=== PATIENT | female | born 1950 | race Caucasian/White ===

== ENCOUNTER 2017-06-14 11:15 | Inpatient (IN) | payer MEDICARE, OTHER ==
[2017-06-14 12:12] LABS: #Lymphocytes 1.5 thou/uL (1.20-3.40); #Monocytes 0.9 thou/uL (0.11-0.59); #Neutrophils 11.6 thou/uL (1.40-6.50); %Basophils 0.2 % (0.0-1.0); %Eosinophils 0.1 % (0.0-10.0); %Lymphocytes 10.4 % (21.0-51.0); %Monocytes 6.1 % (0.0-10.0); %Neutrophils 83.2 % (42.0-75.0); Hemoglobin 11.9 g/dL (12.0-16.0); Mean Corpuscular Hemoglobin 31.3 pg (27.0-31.0); Mean Corpuscular Volume 92.2 fl (81.0-99.0); Platelet Count 159 thou/uL (130-400); RBC Distribution Width 12.6 % (11.5-14.5); White Blood Cell (WBC) Count 13.9 thou/uL (4.8-10.8)
[2017-06-14 12:34] LABS: ALT (SGPT) 22 U/L (8-55); AST (SGOT) 28 U/L (5-34); Albumin 3.2 g/dL (3.4-4.8); Alkaline Phosphatase 71 U/L (40-150); Anion Gap 12 mmol/L (10-20); BUN (Urea Nitrogen) 36 mg/dL (9.8-20.1); Bilirubin, Total 0.3 mg/dL (0.2-1.2); Calc. Creatinine Clearance 0 mL/min (70-130); Calcium 8.4 mg/dL (7.8-10.44); Carbon Dioxide 26 mmol/L (23-31); Chloride 105 mmol/L (98-107); Dilantin 3.8 ug/mL (10.0-20.0); Estimated GFR-MDRD 28; Globulin 2.9 g/dL (2.4-3.5); Glucose 142 mg/dL (80-115); Potassium 4.5 mmol/L (3.5-5.1); Protein, Total 6.1 g/dL (6.0-8.3); Sodium 138 mmol/L (136-145)
--- NOTE | 2017-06-14 14:17 | CT ---
HEAD CT WITHOUT CONTRAST: HISTORY: Seizure. Post ictal state. COMPARISON: 08/20/2016 TECHNIQUE: A noncontrast head CT is performed from the skull base to the skull vertex. FINDINGS: No parenchymal hemorrhage. No extraaxial hematoma. No midline shift. Basilar cisterns are patent. Age appropriate atrophy. Cortical ramirez white matter differential is preserved. Ventricles and sulc i are patent and symmetric. Stable hypodensities involving the bilateral deep ramirez matter structures and the bilateral thalami du e to remote lacunar infarcts. Chronic small vessel ischemic changes of the white matter are also iden tified. No evidence of hydrocephalus. The calvarium is intact. Stable post surgical change in the left temporal bone. IMPRESSION: 1. Limited evaluation due to motion degradation. No acute intracranial process. 2. Remote lacunar infarcts and chronic small vessel ischemic changes of the white matter are redemon strated. POS: YANIV
[2017-06-14] MEDS ORDERED: Ondansetron HCl/PF 4 MG/2 ML Vial IVP PRN (16:39)
[2017-06-14] MEDS ORDERED: Acetaminophen 650 MG Suppository PR PRN (16:39)
[2017-06-14] MEDS ORDERED: Sodium Chloride 0.9% 1,000 ML IV SCH (16:45)
[2017-06-14] MEDS ORDERED: Lorazepam 2 MG/ML VIAL SLOW IVP PRN (16:46)
[2017-06-14] MEDS ORDERED: Dextrose 5% in Water 1,000 ML IV PRN (16:49)
[2017-06-14] MEDS ORDERED: HumaLOG 300 UNITS/3 ML VIAL SC PRN (16:49)
[2017-06-14] MEDS ORDERED: Dextrose 50% Abboject 50 ML SYRINGE SLOW IVP PRN (16:49)
--- NOTE | 2017-06-14 16:57 | HP ---
DATE OF ADMISSION: 06/14/2017 CHIEF COMPLAINT: Seizures. HISTORY OF PRESENT ILLNESS: This is a 66-year-old female being seen in the ER by Internal Medicine, status post seizure. History is obtained from ER physician as the patient is having altered mental s tatus. Per documentation in ER review, patient apparently lives in a [facility] where she had a se izure. At the [facility] per records while the patient was seizing, apparently she was given 2 mg of crushed lorazepam sublingual and once EMS arrived, she received 2 more milligrams of Ativan sublin gual as well. Patient at this point in time in the ER is unresponsive, but appears comfortable. The patient's Dilantin levels were found to be subtherapeutic at 3.8. The patient also was found to hav e significant amount of bloody stool when her diaper was being changed. The patient also had a creat inine of 1.82, her baseline approximately 9 months ago was around 0.86. No family available. No oth er history available. ALLERGIES: No known drug allergies per documentation. PAST MEDICAL HISTORY: Seizures, hypertension, Alzheimer's disease, essential hypertension. SOCIAL HISTORY: Not possible to be obtained. FAMILY HISTORY: Not possible to be obtained. REVIEW OF SYSTEMS: Not possible due to patient's condition. PHYSICAL EXAMINATION: VITAL SIGNS: Blood pressure was 126/80, heart rate 74, respiratory rate of 18, pulse ox 95% on room air, and temperature of 98. GENERAL: No acute distress, lying in bed. HEENT: Pupils are equal, round, reactive to light and accommodation. Normocephalic, atraumatic. Or al cavity appears dry. NECK: Supple, mobile and nontender thyroid. LUNGS: Aerating well. Clear to auscultation bilaterally. HEART: Regular rate and rhythm. S1 and S2. No murmurs, rubs or gallops appreciated. ABDOMEN: Positive bowel sounds, soft, nontender. EXTREMITIES: 2+ peripheral pulses. No edema noted. Bloody stool noted in diaper. NEUROLOGIC: Neurologically, patient withdraws to pain, otherwise does not respond to verbal or tacti le stimuli. IMAGING DATA AND LABORATORY DATA: CT scan of the head is limited due to motion degeneration, remote lacunar infarction and small chronic vessel ischemic changes noted in the white matter. Hemoglobin 1 1.9, WBC count of 14. BMP shows creatinine of 1.82, albumin 3.2, phenytoin levels of 3.8. ASSESSMENT AND PLAN: 1. Seizure. 2. Gastrointestinal bleed. 3. Hypertension. 4. Acute kidney injury on chronic kidney disease stage 3. 5. Leukocytosis. 6. Anemia 7. Alzheimer's disease. PLAN: At this point in time, we will admit the patient to IMU. We will start the patient on IV flui ds, give 2 liters total at 100 mL an hour. We will trend hemoglobin q.12 hours x4 times, repeat BMP in a.m. We will consult GI for GI bleed. If renal function not improving tomorrow, we will consider consultation to Nephrology. We will consult Neurology for altered mental status. Check vitamin lev els, TSH. We will give patient Protonix 40 IV q.12 and provide SCDs for DVT prophylaxis. We will ho ld off on any seizure medications at this point in time as the patient has received 4 mg of benzodiaz epines and currently is not responding to verbal or tactile stimuli oxygenating well and likely will be in need of intubation. We will also obtain blood cultures and urine cultures for completeness pur poses given WBC count of 14 and concern for possible aspiration. No family at bedside. The patient will be default to a FULL CODE status. We will make changes as appropriate once labs have returned.
[2017-06-14 18:42] LABS: Folate (Folic Acid) 3.5 ng/mL (7.0-31.4)
[2017-06-14] MEDS: Sodium Chloride 0.9% 1,000 ML IV SCH (20:05)
[2017-06-14] MEDS: Pantoprazole 40 MG VIAL IVP SCH (20:10)
[2017-06-14 22:29] LABS: Hemoglobin 11.8 g/dL (12.0-16.0)
--- NOTE | 2017-06-15 01:07 | CON ---
DATE OF CONSULTATION: 06/14/2017 CONSULTING PHYSICIAN: Evelyn Starr M.D. REQUESTING PHYSICIAN: Dr. Kelly. REASON FOR CONSULTATION: Acute kidney injury. IMPRESSION: 1. Acute kidney injury. This is likely in the context of poor p.o. intake resulting in prerenal acu te kidney injury; however, cannot completely rule out cytokine-mediated injury, given the elevated wh ite blood cell count in this patient. In this case, possibly urinary tract infection, given this sig nificant mental status change. 2. Seizure, likely breakthrough seizure in the context of subtherapeutic Dilantin level. PLAN: 1. Gentle IV fluid resuscitation. 2. Urinalysis with reflex to culture and sensitivity if indicated. Patient is very incontinent, the refore, straight catheterization can be done to get a urine sample to this effect. 3. Renally dose all medications and avoid potentially nephrotoxic agents. 4. Further management to be dependent on the clinical course. HISTORY OF PRESENT ILLNESS: History is that of a 66-year-old intermediate resident. Accu-Chek from whom I could not get any history at all brought in here with mental status change, seizure disorder a nd noted to have elevated creatinine of 1.82 above her baseline creatinine of 0.8. The patient obrichardsono ly has not been eating more and drinking much lately, but according to the family members on Tuesday , the patient seemed to be much more alert with them prior to this clinical decline. As a result of these findings, decision has been taken to involve Renal in the management of this case. PAST MEDICAL HISTORY: Significant for; 1. History of CVA in the past. 2. Seizure, on Dilantin. 3. Alzheimer's. 4. Hypertension. MEDICATIONS: Reviewed as documented on [employer]. SOCIAL HISTORY: The patient is a intermediate resident. No alcohol, no tobacco, no illicit drug use . REVIEW OF SYSTEMS: Could not be obtained from this patient due to clinical condition. PHYSICAL EXAMINATION: GENERAL: The patient was found to be lying on the bed in no obvious distress. VITAL SIGNS: Afebrile, blood pressure 126/80, pulse 74, respiratory of 18, O2 sat on 95%. HEENT: Remarkable for dry oral mucosa. No conjunctival injection or icterus. NECK: Supple. CARDIOVASCULAR SYSTEM: First and second heart sounds were heard. RESPIRATORY SYSTEM: Clear to auscultation. DIGESTIVE SYSTEM: Reviewed a benign abdomen. EXTREMITIES: No peripheral edema. SKIN: No new gross rash. LYMPHATICS: No peripheral lymphadenopathy. SUMMARY: A 66-year-old intermediate resident who presented here with seizure, mental status change a nd noted with elevated creatinine above her baseline creatinine in the context of acute kidney injury . Thank you for this consultation. We will follow with you.
[2017-06-15 01:41] LABS: Bilirubin Negative (Negative); Blood, Urine Moderate (Negative); Clarity TURBID (Clear); Glucose, Urine (Dipstick) Negative (Negative); Leukocyte Large (Negative); Nitrite Negative (Negative); Protein, Urine (Dipstick) 30 mg/dL (Neg-Trace); Specific Gravity, Urine 1.018 (1.002-1.036); Urobilinogen 0.2 mg/dL (0.2-1.0)
[2017-06-15 01:43] LABS: Bacteria/HPF None Seen HPF (None Seen); Squamous Epithelial 0-3 HPF (0-3)
[2017-06-15 01:44] LABS: Yeast-AUWi Flag 115.8 (0-25.0)
[2017-06-15 01:45] LABS: Pathc Cast-AUWi Flag 10.46 (0-2.49)
[2017-06-15 01:56] LABS: Yeast-All Forms None Seen HPF (None Seen)
[2017-06-15 03:52] LABS: #Lymphocytes 1.2 thou/uL (1.20-3.40); #Monocytes 0.8 thou/uL (0.11-0.59); #Neutrophils 8.7 thou/uL (1.40-6.50); %Basophils 0.1 % (0.0-1.0); %Eosinophils 0.2 % (0.0-10.0); %Lymphocytes 11.3 % (21.0-51.0); %Monocytes 7.1 % (0.0-10.0); %Neutrophils 81.3 % (42.0-75.0); Hemoglobin 10.7 g/dL (12.0-16.0); Mean Corpuscular HGB CONC 32.8 g/dL (32.0-36.0); Mean Corpuscular Hemoglobin 30.9 pg (27.0-31.0); Mean Corpuscular Volume 94.2 fl (81.0-99.0); Mean Platelet Volume 7.9 fL (7.4-10.4); Platelet Count 138 thou/uL (130-400); RBC Distribution Width 12.5 % (11.5-14.5); Red Blood Cell (RBC) Count 3.45 mill/uL (4.20-5.40); White Blood Cell (WBC) Count 10.7 thou/uL (4.8-10.8)
[2017-06-15 04:30] LABS: Anion Gap 10 mmol/L (10-20); BUN (Urea Nitrogen) 30 mg/dL (9.8-20.1); Calc. Creatinine Clearance 39 mL/min (70-130); Calcium 8.5 mg/dL (7.8-10.44); Carbon Dioxide 27 mmol/L (23-31); Chloride 107 mmol/L (98-107); Estimated GFR-MDRD 47; Glucose 130 mg/dL (80-115); Potassium 3.6 mmol/L (3.5-5.1); Sodium 140 mmol/L (136-145)
[2017-06-15] MEDS: Sodium Chloride 0.9% 1,000 ML IV SCH (05:39)
[2017-06-15] MEDS: Pantoprazole 40 MG VIAL IVP SCH ×2 (09:27→22:00)
--- NOTE | 2017-06-15 11:10 | CON ---
DATE OF CONSULTATION: 06/15/2017 REQUESTING PHYSICIAN: Dr. Kelly. REASON FOR CONSULTATION: GI bleeding. HISTORY OF PRESENT ILLNESS: Kely Tuttle is a 66-year-old woman who was admitted from the [facility] yesterday after having a seizure with residual altered mental status. She has a history of Alzhe skyler's dementia and prior seizures. She was found to have a subtherapeutic phenytoin level. Also up on presentation in the ER, she was found to have blood in her diaper, this was described as a red jel ly consistency and then later last night she had some more bright red blood in her diaper. There has been no further overt bleeding this morning. She has remained hemodynamically stable. Her mental s tatus seems to have improved a bit, though it is unclear to me what her baseline is. She is not comp laining of any abdominal pain. She was found to have mild normocytic anemia with initial hemoglobin of 11.9, now at 10.7, and folic acid level was found to be low. History is difficult to obtain from the patient due to her altered mental status and I have been unable to contact any family members at any of the listed phone numbers. I note she was seen by my GI colleague, Dr. Tonio Chisholm way back in 2002. At that time, she had an en doscopy done after an episode of overt bleeding. EGD at that time showed only a hiatal hernia and bi opsies were negative for Millan's esophagus. Colonoscopy at that time showed only a single small si gmoid hyperplastic polyp, which was removed. It is unclear to me whether she has had any endoscopic studies since 2002. REVIEW OF SYSTEMS: The patient denies abdominal pain. Otherwise mental status continues to wax and wane and so full review of systems is unobtainable. SOCIAL HISTORY: By report, there is no smoking, alcohol, or drug use. FAMILY HISTORY: Unobtainable from the patient. ALLERGIES: No known drug allergies. OUTPATIENT MEDICATIONS: Per medication list, this includes, tramadol, metformin, Benadryl, Seroquel, phenytoin, Zyprexa, metoprolol, magnesium hydroxide p.r.n., lisinopril, Levaquin, glimepiride, gabap entin, famotidine, Depakote, and Tylenol p.r.n. INPATIENT MEDICATIONS: Include Zofran p.r.n., Protonix 40 mg IV q.12 hours, sliding scale insulin. PHYSICAL EXAMINATION: VITAL SIGNS: Temperature 97.8, pulse 78, blood pressure 120/52, 100% oxygen saturation on room air. GENERAL: Frail, 66-year-old woman, lying in bed comfortably, in no acute distress. MENTAL: She is alert to person, not to place or time. She can answer simple yes or no questions reg arding current symptoms, but she is unable to provide any history. SKIN: No jaundice, no rashes were palpable. EYES: No scleral icterus. Extraocular movements intact. ENT: Mucous membranes moist, no oral lesions. LYMPH: No submandibular or supraclavicular lymphadenopathy. THYROID: Nontender to palpation. HEART: Regular rate and rhythm. LUNGS: Clear to auscultation bilaterally. ABDOMEN: Flat, bowel sounds present, soft, no tenderness to palpation. No masses or organomegaly ap preciated. EXTREMITIES: No peripheral edema. VESSELS: Radial pulses 2+ bilaterally. LABORATORY STUDIES: Hemoglobin initially 11.9, now down to 10.7 after IV hydration. Note, hemoglobi n was 13 upon last year's hospitalization. MCV normal at 94. WBC is 10.7, platelets 138. BUN 30, c reatinine 1.15, folic acid, low at 3.5. Vitamin B12 521. TSH 0.66. LFTs all normal with total bili arguello 0.3, alkaline phosphatase 71, AST 28, ALT 22, albumin 3.2. FOBT was positive. IMAGING STUDIES: CT of the head showed no acute processes. There are chronic small vessel changes. ASSESSMENT AND PLAN: 1. Lower gastrointestinal bleeding, acute, possibly resolving. 2. Anemia, normocytic. 3. Folic acid deficiency. The pattern of bleeding this presentation could be consistent with rectal outlet source such as hemor rhoidal origin versus diverticular bleeding or possibly ischemic colitis. It is unclear whether she has had any colonoscopy more recent than 2002. Certainly, she is hemodynamically stable with only mi ld anemia. I do think it would be reasonable to perform colonoscopy for definitive investigation of the bleeding source, but I am unable to get ahold of any family members or other contacts at any of t he listed numbers. There is certainly no urgency to this unless more significant overt bleeding were to occur over the course of today. Accordingly, we will just have her on a clear liquid diet today and reassess tomorrow. Please trend H&H. We will also order iron studies to round out the anemia la b evaluation.
--- NOTE | 2017-06-15 15:06 | PRG ---
DATE OF SERVICE: 06/15/2017 SUBJECTIVE: The patient was seen and examined, much more awake today, and able to interact to an ext ent, noted with the following vital signs. OBJECTIVE: VITAL SIGNS: Afebrile with temperature 97.7, pulse 77, respiratory rate of 12, O2 sat 99% with blood pressure 142/64. HEENT EXAMINATION: Unremarkable. CARDIOVASCULAR SYSTEM: First and second heart sounds were heard. RESPIRATORY SYSTEM: Clear to auscultation bilaterally. DIGESTIVE SYSTEM: Revealed a benign abdomen. EXTREMITIES: No peripheral edema. SKIN EXAMINATION: No new gross rash. IMPRESSION: Acute kidney injury, which is more or less in the context of intravascular depletion, se ems to be responding with drop in the creatinine level. PLAN: 1. We will continue with current renal supportive measures. 2. Other management dependent on the clinical course as well as an outpatient services and primary t eam.
--- NOTE | 2017-06-15 15:43 | PDOC.PN ---
- Subjective Encounter Start Date: 06/15/17 Encounter Start Time: 15:41 Patient seen and examined, states she feels much better today, no new issues otherwise, no family at bedside. - Objective Vital Signs & Weight: Vital Signs (12 hours) Temp Pulse Resp BP BP BP Pulse Ox 06/15/17 12:00 97.7 F 77 14 142/64 H 99 06/15/17 11:35 97.7 F 77 12 142/64 H 99 06/15/17 08:00 97.8 F 78 12 120/52 L 100 06/15/17 07:53 97.6 F 78 10 L 120/52 L 100 06/15/17 04:00 98.9 F 70 14 122/55 L 98 Weight Admit Weight 115 lb 3.2 oz Weight 115 lb 14.4 oz I&O: 06/14/17 06/15/17 06/16/17 06:59 06:59 06:59 Intake Total 1395 Balance 1395 Result Diagrams: 06/15/17 03:40 06/15/17 03:40 Additional Labs: Accuchecks 06/15/17 06/15/17 06/14/17 10:38 05:47 20:17 POC Glucose 114 H 111 H 108 Phys Exam - Physical Examination Constitutional: NAD HEENT: PERRLA, moist MMs, sclera anicteric Neck: no nodes, no JVD, supple Respiratory: no wheezing, no rales, no rhonchi Cardiovascular: RRR, no significant murmur, no rub Gastrointestinal: soft, non-tender, no distention Musculoskeletal: no edema, pulses present Neurological: non-focal, normal sensation Dx/Plan (1) Acute encephalopathy Code(s): G93.40 - ENCEPHALOPATHY, UNSPECIFIED Status: Acute (2) Alzheimer's dementia with behavioral disturbance Code(s): G30.8 - OTHER ALZHEIMER'S DISEASE; F02.81 - DEMENTIA IN OTH DISEASES CLASSD ELSWHR W BEHAVIORAL DISTURB Status: Chronic Qualifiers: (3) DM type 2 (diabetes mellitus, type 2) Status: Chronic Qualifiers: (4) HTN (hypertension) Code(s): I10 - ESSENTIAL (PRIMARY) HYPERTENSION Status: Chronic Qualifiers: (5) Seizure disorder Code(s): G40.909 - EPILEPSY, UNSP, NOT INTRACTABLE, WITHOUT STATUS EPILEPTICUS Status: Chronic - Plan * Mental status much improved * neurology following for seizure history * renal function improving, Cr normalizing * Hgb stable, no more bloody bowel movements today * patient can be moved to the telemetry floor is ok with subspecialists * no family at bedside
[2017-06-16 04:48] LABS: #Eosinphils 0.1 thou/uL (0.0-0.7); #Monocytes 0.6 thou/uL (0.11-0.59); #Neutrophils 7.9 thou/uL (1.40-6.50); %Basophils 0.3 % (0.0-1.0); %Eosinophils 1.4 % (0.0-10.0); %Lymphocytes 9.9 % (21.0-51.0); %Monocytes 6.1 % (0.0-10.0); %Neutrophils 82.4 % (42.0-75.0); Hemoglobin 10.5 g/dL (12.0-16.0); Mean Corpuscular HGB CONC 33.8 g/dL (32.0-36.0); Mean Corpuscular Hemoglobin 31.1 pg (27.0-31.0); Platelet Count 133 thou/uL (130-400); RBC Distribution Width 12.4 % (11.5-14.5); Red Blood Cell (RBC) Count 3.39 mill/uL (4.20-5.40); White Blood Cell (WBC) Count 9.6 thou/uL (4.8-10.8)
[2017-06-16 04:56] LABS: Anion Gap 13 mmol/L (10-20); BUN (Urea Nitrogen) 20 mg/dL (9.8-20.1); Calc. Creatinine Clearance 59 mL/min (70-130); Calcium 8.6 mg/dL (7.8-10.44); Carbon Dioxide 23 mmol/L (23-31); Chloride 108 mmol/L (98-107); Estimated GFR-MDRD 75; Glucose 109 mg/dL (80-115); Iron 12 ug/dL (50-170); Iron Binding Capacity, Total 163 mcg/dL (265-497); Potassium 3.2 mmol/L (3.5-5.1); Sodium 141 mmol/L (136-145)
[2017-06-16] MEDS: Pantoprazole 40 MG VIAL IVP SCH ×2 (09:40→20:47)
--- NOTE | 2017-06-16 11:30 | PRG ---
DATE OF SERVICE: 06/16/2017 SUBJECTIVE: Seen and examined, noncommunicative as usual, noted with the following. PHYSICAL EXAMINATION: VITAL SIGNS: Afebrile with temperature 97.5, pulse 67, respiratory rate of 18, O2 saturation 100%, a nd blood pressure 136/61. HEENT: Unremarkable. CARDIOVASCULAR SYSTEM: First and second heart sounds were heard. RESPIRATORY SYSTEM: Clear to auscultation. DIGESTIVE SYSTEM: Revealed a benign abdomen with positive bowel sounds. EXTREMITIES: No peripheral edema. SKIN: No new gross rash. LYMPHATICS: No peripheral lymphadenopathy. IMPRESSION: 1. Acute kidney injury which seems to have improved with rehydration. 2. Mental status change in the context of dementia. PLAN: 1. We will continue current renal supportive measures. 2. Further management to be dependent on the clinical course.
[2017-06-16] MEDS ORDERED: Iron Sucrose Complex 200 MG in Sodium Chloride 0.9% 250 ML 250 ML IVPB SCH (13:15)
[2017-06-16] MEDS ORDERED: Sodium Ferric Gluconate 250 MG in Sodium Chloride 0.9% 250 ML 250 ML IVPB SCH (13:30)
--- NOTE | 2017-06-16 13:36 | PDOC.PN ---
- Subjective Encounter Start Date: 06/16/17 Encounter Start Time: 13:35 Patient seen and examined, doing much better, no new issues per nursing staff, no family at bedside. - Objective Vital Signs & Weight: Vital Signs (12 hours) Temp Pulse Resp BP Pulse Ox 06/16/17 11:25 98.1 F 69 18 145/61 H 95 06/16/17 08:00 97.5 F L 67 18 06/16/17 07:25 97.5 F L 67 18 136/61 100 06/16/17 04:00 97.9 F 67 16 143/63 H 98 Weight Admit Weight 115 lb 3.2 oz Weight 117 lb 1.047 oz I&O: 06/15/17 06/16/17 06/17/17 06:59 06:59 06:59 Intake Total 1395 4245 Balance 1395 4245 Result Diagrams: 06/16/17 04:20 06/16/17 04:20 Additional Labs: Accuchecks 06/16/17 06/16/17 06/15/17 10:19 04:24 22:38 POC Glucose 174 H 111 H 117 H 06/15/17 16:40 POC Glucose 112 H Phys Exam - Physical Examination Constitutional: NAD HEENT: PERRLA, moist MMs, sclera anicteric Neck: no nodes, no JVD, supple Respiratory: no wheezing, no rales, no rhonchi Cardiovascular: RRR, no significant murmur, no rub Gastrointestinal: soft, non-tender, no distention Musculoskeletal: no edema, pulses present Dx/Plan (1) Acute encephalopathy Code(s): G93.40 - ENCEPHALOPATHY, UNSPECIFIED Status: Acute (2) Alzheimer's dementia with behavioral disturbance Code(s): G30.8 - OTHER ALZHEIMER'S DISEASE; F02.81 - DEMENTIA IN OTH DISEASES CLASSD ELSWHR W BEHAVIORAL DISTURB Status: Chronic Qualifiers: (3) DM type 2 (diabetes mellitus, type 2) Status: Chronic Qualifiers: (4) HTN (hypertension) Code(s): I10 - ESSENTIAL (PRIMARY) HYPERTENSION Status: Chronic Qualifiers: (5) Seizure disorder Code(s): G40.909 - EPILEPSY, UNSP, NOT INTRACTABLE, WITHOUT STATUS EPILEPTICUS Status: Chronic - Plan * resume depakote and dilantin * resume home BP meds with hold parameters * neurological evaluation pending, appreciate renal and GI input * transfer to telemetry floor today * DC plans in AM back to NH if patient doing well and cleared by subspecialists * no family at bedside.
[2017-06-16] MEDS ORDERED: Potassium Chloride 40 MEQ in Premix Bag 1 BAG IVPB SCH (13:45)
--- NOTE | 2017-06-16 15:15 | CON ---
HISTORY OF PRESENT ILLNESS: Ms. Tuttle is a 66-year-old female who lives in a [facility]. She gallagher s dementia, I am told. She is unable to give an accurate history. She presented with seizures. She apparently has a history of seizure disorder. She was found to be subtherapeutic on her seizure meds, but has had no further seizures. PAST MEDICAL HISTORY: Remarkable for hypertension, dementia. There is no family in the room and there is no family available at this time. Old records were reviewed. She was hospitalized here last in 08/2016 with altered mental status at t hat time. Then, the family that available was a sister and a niece. She was found to have urinary tract infection. She has a history of diabetes as well. SOCIAL HISTORY: She is a nonsmoker, nondrinker. She has no history of drug use. She reportedly has a history of bipolar disorder. FAMILY HISTORY: Negative for vascular disease, cancer, or lung disease in early age. ALLERGIES: She has no reported drug allergies. MEDICATIONS: She lives in [facility]. REVIEW OF SYSTEMS: Not obtainable. MEDICATIONS: When she was hospitalized last year, she was on Ativan, Depakote, Dilantin, Benadryl, f amotidine, gabapentin, glimepiride, Lasix, lisinopril, metformin, metoprolol, potassium, Remeron, Ser oquel, tramadol, and Zyprexa. PHYSICAL EXAMINATION: GENERAL: She is lying on her left side. She denied being in any distress. She opened her eyes quic kly when I stimulated her. Answer questions. She thought she was at home. VITAL SIGNS: She is afebrile, heart rate 76, respiratory rate 17, oximetry is 98 on room air, blood pressure 155/74. NECK: Supple. No lymphadenopathy. LUNGS: Clear. HEART: Regular rhythm. S1 and S2 are normal. ABDOMEN: Soft and nontender. EXTREMITIES: Without clubbing, cyanosis, or edema. NEUROLOGIC: Grossly nonfocal. LABORATORY DATA: White count is 10.7, hemoglobin 10.7, platelets 138,000. Sodium 140, potassium 3.6 , chloride 107, bicarb 27, BUN 30, creatinine 1.15. Creatinine was 1.82 on admission. Baseline crea tinine is about 0.8. Reviewing old records. Her Dilantin level was 6.8 when she was here in August of last year was 3.8 on admission here. IMPRESSION: 1. Seizure disorder secondary to subtherapeutic seizure. 2. Polypharmacy. 3. Dementia that seems to be fairly advanced. Once her seizure meds are therapeutic, she will be transferred back to the [facility]. She has not had any seizure since she has been here. Code status definitely needs to be addressed. Palliative care input may be appropriate. This is a 50-minutes pulmonary consult greater than 50% of the time was spent on unit coordinating ca re.
--- NOTE | 2017-06-16 18:52 | PRG ---
DATE OF SERVICE: 06/16/2017 SUBJECTIVE: Ms. Tuttle tentatively scheduled to go back to the residential. There are no new issu es. OBJECTIVE: VITAL SIGNS: Have been stable. She is afebrile, heart rate 71, respiratory rate 16, oximetry is 98 on room air, blood pressure 133/67. IMPRESSION: 1. Seizures secondary to a past CVA and secondary to a subtherapeutic seizure medicine levels. 2. Dementia. Code status still needs to be addressed. She should be transferred back to the residential and cont inued on her seizure medication.
[2017-06-16] MEDS: Lisinopril 20 MG TAB PO SCH (20:47)
[2017-06-16] MEDS: Divalproex Sodium DR 500 MG TAB PO SCH (20:48)
[2017-06-16] MEDS: Metoprolol Tartrate 100 MG TAB PO SCH (20:48)
[2017-06-16] MEDS ORDERED: Simvastatin 40 MG TAB PO SCH (21:00)
[2017-06-16] MEDS ORDERED: Atorvastatin Calcium 20 MG TAB PO SCH (21:00)
--- NOTE | 2017-06-16 21:10 | PRG ---
DATE OF SERVICE: 06/16/2017 SUBJECTIVE: Ms. Tuttle has been doing okay. She denies any abdominal pain. Reportedly, she had on e bowel movement today and this was normal brown without any evidence of blood. Hemoglobin is stable today. Iron studies are mixed. OBJECTIVE: VITAL SIGNS: Temperature 98.0, pulse 71, blood pressure 152/60, 98% oxygen saturation on room air. GENERAL: No acute distress, remains pleasantly confused. HEART: Regular rate and rhythm. LUNGS: Clear to auscultation bilaterally. ABDOMEN: Soft, nontender to palpation. EXTREMITIES: No peripheral edema. LABORATORY DATA: Hemoglobin stable at 10.5, WBC 9.6, platelets 133. Sodium 141, potassium 3.2, BUN 20, creatinine 0.77, glucose 145. Iron studies are mixed with ferritin normal at 169. Iron low at 1 2. TIBC low at 163. ASSESSMENT AND PLAN: 1. Lower gastrointestinal bleeding, resolved. 2. Anemia, normocytic. 3. Folic acid deficiency. The patient has had no further evidence of overt gastrointestinal bleeding. There would be limited u tility to colonoscopy at this time. If the patient were to have recurrent bleeding episodes, this co uld certainly be considered at a later time, depending on patient's overall health status and comorbi dities. We will not plan on any endoscopic investigation this admission. I would recommend that she receive multivitamin with folic acid. GI will sign off. Please call back with questions or concerns.
[2017-06-17 05:21] LABS: #Eosinphils 0.2 thou/uL (0.0-0.7); #Lymphocytes 1.2 thou/uL (1.20-3.40); #Monocytes 0.7 thou/uL (0.11-0.59); #Neutrophils 6.5 thou/uL (1.40-6.50); %Basophils 0.1 % (0.0-1.0); %Lymphocytes 14.3 % (21.0-51.0); %Monocytes 8.4 % (0.0-10.0); %Neutrophils 75.2 % (42.0-75.0); Mean Corpuscular HGB CONC 34.4 g/dL (32.0-36.0); Mean Corpuscular Hemoglobin 31.4 pg (27.0-31.0); Mean Corpuscular Volume 91.2 fl (81.0-99.0); Mean Platelet Volume 7.4 fL (7.4-10.4); Platelet Count 131 thou/uL (130-400); RBC Distribution Width 12.1 % (11.5-14.5); White Blood Cell (WBC) Count 8.7 thou/uL (4.8-10.8)
[2017-06-17 05:24] VITALS: BMI 22.1
[2017-06-17 05:41] LABS: Anion Gap 7 mmol/L (10-20); BUN (Urea Nitrogen) 15 mg/dL (9.8-20.1); Calc. Creatinine Clearance 56 mL/min (70-130); Calcium 8.6 mg/dL (7.8-10.44); Carbon Dioxide 29 mmol/L (23-31); Chloride 107 mmol/L (98-107); Estimated GFR-MDRD 71; Glucose 133 mg/dL (80-115); Potassium 3.2 mmol/L (3.5-5.1); Sodium 140 mmol/L (136-145)
[2017-06-17] MEDS: Metoprolol Tartrate 100 MG TAB PO SCH (09:11)
[2017-06-17] MEDS: Lisinopril 20 MG TAB PO SCH (09:11)
[2017-06-17] MEDS: Pantoprazole 40 MG VIAL IVP SCH (09:12)
[2017-06-17] MEDS: Divalproex Sodium DR 500 MG TAB PO SCH (09:13)
--- NOTE | 2017-06-17 14:19 | PDOC.EVN ---
Event Note - Event Note Event Note: DC Summary #[id number]
[2017-06-17 15:20] VITALS: BP 119/66; TEMP 97.6
--- NOTE | 2017-06-17 17:58 | DIS ---
DATE OF ADMISSION: 06/14/2017 DATE OF DISCHARGE: 06/17/2017 ADMITTING DIAGNOSES: Seizures, hypertension, Alzheimer disease, essential hypertension, and gastroin testinal bleed. DISCHARGE DIAGNOSES: Seizure stabilized, hypertension, Alzheimer disease, essential hypertension, st able; and gastrointestinal bleed, resolved. HOSPITAL COURSE: The patient is a 66-year-old female who apparently had a grand mal seizure at her [facility] home and was brought to the ER. [facility], she receiv ed 2 grams of sublingual diazepam and she was given 2 more mg IV by EMS when they arrived. When she arrived in the ER, she was completely unresponsive in the bed admitted to the ICU. The patient was f ollowed closely by Internal Medicine and Nephrology as well as a Pulmonary Critical Care. GI was als o consulted for GI bleed. The patient's LOU appeared to have resolved upon the time of discharge. T he patient was apparently back to baseline after a few days of treatment. Patient at this point in t melissa was to be discharged home with resumption of her anti-seizure medications. Physician at the [facility] home was to adjust the anti-seizure medications as appropriate. The patient did not have any oth er issues. Hemoglobin was stable throughout admission and vital signs were stable as well. No famil y at bedside available at any point in time. The patient's [facility]. MEDICATIONS: See MAY. FOLLOWUP: Follow up with her PCP within 5-10 days. DIET: Low fat, low calorie, high fiber diet. ACTIVITY: As tolerated with assistance, seizure precautions. CONDITION: Stable. PROGNOSIS: Guarded.
--- NOTE | 2017-06-22 14:53 | PQF ---
ROHITH HOWARD TERESA SON [id number] [facility] [id number] CLINICAL DOCUMENTATION CLARIFICATION FORM: POST DISCHARGE Please exercise your independent, professional judgment in responding to the clarification form. Clinical indicators are provided on the bottom of this form for your review. Thank you. 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 [ ] Seizures secondary to past CVA (sequela) [ ] Other diagnosis [ ] Unable to determine In addition, please specify: Present on Admission (POA): [ ] Yes [ ] No [ ] Unable to determine PN PULMED; "Seizures secondary to a past CVA and secondary to subtherapeutic seizure medicine levels." DC SUMMARY; "Seizure stabilized" PN 06/15 ; "Seizure disorder" CLINICAL INDICATORS - SIGNS / SYMPTOMS/ LABS phenytoin levels 3.8 Acute encephalopathy RISK FACTORS History of CVA Dementia, Alzheimer's Subtherapeutic Dilantin level Unresponsive on arrival TREATMENT Monitor IV fluids Pulmonary Consult (This form is maintained as a part of the permanent medical record) 2014 [email or web address], [email or web address]. All Rights Reserved [email or web address] [phone] [place]
== END 2017-06-17 16:11 | DRG 377 ==
LOC: ERS 11:15 → IMCU/EMU 17:49 → T4-B 06-16 22:05
PROVIDERS: ADMIT Internal Medicine; ATTEND Internal Medicine
DX: N17.9 Acute kidney failure, unspecified; F02.81 Dementia in other diseases classified elsewhere, unspecified severity, with behavioral disturbance; N18.3 Chronic kidney disease, stage 3 (moderate); G93.40 Encephalopathy, unspecified; K92.2 Gastrointestinal hemorrhage, unspecified; R56.9 Unspecified convulsions; N39.0 Urinary tract infection, site not specified; R32 Unspecified urinary incontinence; G30.9 Alzheimer's disease, unspecified; E11.22 Type 2 diabetes mellitus with diabetic chronic kidney disease; E53.8 Deficiency of other specified B group vitamins; I12.9 Hypertensive chronic kidney disease with stage 1 through stage 4 chronic kidney disease, or unspecified chronic kidney disease; D64.9 Anemia, unspecified; Z87.19 Personal history of other diseases of the digestive system; Z86.73 Personal history of transient ischemic attack (TIA), and cerebral infarction without residual deficits
CPT/HCPCS: 36415; 36416; 70450; 80048; 80053; 80185; 81003; 81015; 82274; 82607; 82728; 82746; 83540; 83550; 84443; 85025; 94760; 95816; 95819; 96360; 96361; A4216; C9113; G8978-GP-CM; G8979-GP-CL; G8987-GO-CM; G8988-GO-CK; J2916; J7050